=== PATIENT | male | born 1960 | race Asian ===

== ENCOUNTER 2019-01-12 16:46 | Inpatient (IN) | payer BC, MEDICAID ==
[~2019-01-12] VITALS: Ht 160 cm; Wt 73.9 kg
[2019-01-12 18:43] LABS: BASOPHILS % (AUTO) 0.9 % (0.0-2.0); EOSINOPHILS % (AUTO) 1.2 % (1.0-6.0); HEMATOCRIT 43.8 % (41-53); HEMOGLOBIN 14.8 g/dL (13.5-17.5); LYMPHOCYTES # (AUTO) 2.5 K/uL (1.0-4.8); LYMPHOCYTES % (AUTO) 23.3 % (22.0-44.0); MEAN CORPUSCULAR HGB CONC 33.8 G/dL (31.0-37.0); MEAN CORPUSCULAR VOLUME 83 fL (80-100); MONOCYTES % (AUTO) 9.4 % (2.0-9.0); NEUTROPHILS % (AUTO) 65.2 % (40.0-70.0); PLATELET COUNT (AUTO) 327 K/uL (150-450); RED BLOOD CELL COUNT(AUTO) 5.28 MIL/uL (4.50-5.90); RED CELL DISTRIBUTION WIDTH 13.7 % (11.5-14.5)
[2019-01-12 18:53] LABS: ANION GAP 13 mmol/L (8-16); CALCIUM, TOTAL 9.2 mg/dL (8.8-10.5); CARBON DIOXIDE 25 mmol/L (22-29); CHLORIDE 105 mmol/L (98-107); CREATININE 1.04 mg/dL (0.60-1.30); GLOMERULAR FILTR. RATE CALC > 60 mL/min (>60); GLUCOSE,RANDOM 100 mg/dL (70-110); POTASSIUM 3.6 mmol/L (3.5-5.1); SODIUM SERUM 143 mmol/L (136-145); UREA NITROGEN, BLOOD 9 mg/dL (7-18)
[2019-01-12 19:00] LABS: ALANINE AMINOTRANSFERASE 110 U/L (12-78); ALKALINE PHOSPHATASE 68 U/L (46-116); ASPARTATE AMINOTRANSFERASE 126 U/L (15-37); BILIRUBIN,TOTAL 0.8 mg/dL (0.1-1.0); TOTAL PROTEIN, SERUM 7.5 g/dL (6.4-8.2)
[2019-01-12] MEDS ORDERED: FLUD25I IM (19:34)
[2019-01-12] MEDS ORDERED: RISP0.252 PO (19:34)
[2019-01-12 20:05] LABS: AMPHET/METH SCREEN,URINE NEGATIVE (NEGATIVE); BARBITURATE SCREEN, URINE NEGATIVE (NEGATIVE); BENZODIAZEPINES SCREEN,URINE NEGATIVE (NEGATIVE); CANNABINOID SCREEN,URINE NEGATIVE (NEGATIVE); COCAINE SCREEN,URINE NEGATIVE (NEGATIVE); METHADONE SCREEN, URINE NEGATIVE (NEGATIVE); OPIATE SCREEN,URINE NEGATIVE (NEGATIVE)
[2019-01-12 20:07] LABS: PHENCYCLIDINE SCREEN,URINE NEGATIVE (NEGATIVE)
[2019-01-13 00:47] VITALS: BP 130/90
[2019-01-13 07:19] LABS: CHOL/HDL RATIO 4.9 (4.2-7.3)
[2019-01-13] MEDS ORDERED: MAGNESIUM HYDROXIDE SUSPENSION 30 ML UDCUP PO PRN (08:00)
[2019-01-13] MEDS ORDERED: ALBUTEROL SULFATE HFA 90 MCG/PUFF 8 GM INHALER IH PRN (08:00)
[2019-01-13] MEDS ORDERED: LOPERAMIDE HCL 2 MG CAPSULE PO PRN (08:00)
[2019-01-13] MEDS ORDERED: ACETAMINOPHEN 325 MG TABLET PO PRN (08:00)
[2019-01-13] MEDS ORDERED: CloNIDine HCL 0.1 MG TABLET PO PRN (08:00)
[2019-01-13] MEDS ORDERED: PETROLATUM,WHITE 28 GM JELLY TP PRN (08:00)
[2019-01-13] MEDS ORDERED: BACITRACIN 28.4 GM OINTMENT TP PRN (08:00)
[2019-01-13] MEDS ORDERED: IBUPROFEN 600 MG TABLET PO PRN (08:00)
[2019-01-13] MEDS ORDERED: ONDANSETRON HCL 4 MG TABLET PO PRN (08:00)
[2019-01-13] MEDS ORDERED: MAG HYDROX/AL HYDROX/SIMETH ES 30 ML SUSPENSION UDCUP PO PRN (08:00)
[2019-01-13] MEDS ORDERED: BENZOCAINE/MENTHOL LOZENGE MM PRN (08:00)
[2019-01-13 08:30] VITALS: BP 143/89
[2019-01-13] MEDS: DOCUSATE SODIUM 100 MG CAPSULE PO SCH (09:25)
[2019-01-13] MEDS: OMEPRAZOLE 20 MG CAPSULE PO SCH (09:26)
[2019-01-13] MEDS: RisperiDONE 1 MG TABLET PO SCH ×2 (13:46→20:52)
[2019-01-14 08:05] VITALS: BP 149/83
[2019-01-14] MEDS: OMEPRAZOLE 20 MG CAPSULE PO SCH (08:34)
[2019-01-14] MEDS: DOCUSATE SODIUM 100 MG CAPSULE PO SCH (08:34)
[2019-01-14] MEDS: RisperiDONE 1 MG TABLET PO SCH ×2 (08:34→20:08)
[2019-01-14 19:29] VITALS: BP 137/98
[2019-01-14] MEDS: SIMVASTATIN 10 MG TABLET PO SCH (21:33)
[2019-01-15] MEDS: LISINOPRIL 10 MG TABLET PO SCH (08:31)
[2019-01-15] MEDS: OMEGA-3/DHA/EPA/FISH OIL 1,000 MG CAPSULE PO SCH (08:31)
[2019-01-15] MEDS: RisperiDONE 1 MG TABLET PO SCH (08:31)
[2019-01-15] MEDS: OMEPRAZOLE 20 MG CAPSULE PO SCH (08:31)
[2019-01-15] MEDS: DOCUSATE SODIUM 100 MG CAPSULE PO SCH (08:31)
[2019-01-15 10:46] VITALS: BP 150/98
[2019-01-15] MEDS: LORazepam 2 MG TABLET PO PRN ×2 (11:31→17:02)
[2019-01-15] MEDS: HALOPERIDOL 5 MG TABLET PO PRN ×2 (11:31→17:02)
[2019-01-15 16:41] VITALS: BP 110/69
[2019-01-15] MEDS: RisperiDONE 2 MG TABLET PO SCH (20:55)
[2019-01-15] MEDS: SIMVASTATIN 10 MG TABLET PO SCH (20:55)
[2019-01-16] MEDS: ZOLPIDEM TARTRATE 10 MG TABLET PO PRN (00:32)
[2019-01-16 00:37] VITALS: BP 109/82
[2019-01-16 08:20] VITALS: BP 124/89
[2019-01-16] MEDS: OMEGA-3/DHA/EPA/FISH OIL 1,000 MG CAPSULE PO SCH (08:25)
[2019-01-16] MEDS: HALOPERIDOL 5 MG TABLET PO PRN ×2 (08:25→13:37)
[2019-01-16] MEDS: OMEPRAZOLE 20 MG CAPSULE PO SCH (08:25)
[2019-01-16] MEDS: LISINOPRIL 10 MG TABLET PO SCH (08:25)
[2019-01-16] MEDS: RisperiDONE 2 MG TABLET PO SCH ×2 (08:25→20:26)
[2019-01-16] MEDS: LORazepam 2 MG TABLET PO PRN ×2 (08:25→13:37)
[2019-01-16] MEDS: DOCUSATE SODIUM 100 MG CAPSULE PO SCH (08:25)
[2019-01-16 17:33] VITALS: BP 131/64
[2019-01-16] MEDS: SIMVASTATIN 10 MG TABLET PO SCH (20:26)
[2019-01-17 08:10] VITALS: BP 135/94
[2019-01-17] MEDS: RisperiDONE 2 MG TABLET PO SCH ×2 (08:22→20:12)
[2019-01-17] MEDS: HALOPERIDOL 5 MG TABLET PO PRN ×2 (08:22→18:02)
[2019-01-17] MEDS: LISINOPRIL 10 MG TABLET PO SCH (08:22)
[2019-01-17] MEDS: OMEGA-3/DHA/EPA/FISH OIL 1,000 MG CAPSULE PO SCH (08:22)
[2019-01-17] MEDS: DOCUSATE SODIUM 100 MG CAPSULE PO SCH (08:22)
[2019-01-17] MEDS: LORazepam 2 MG TABLET PO PRN ×2 (08:22→18:02)
[2019-01-17] MEDS: OMEPRAZOLE 20 MG CAPSULE PO SCH (08:22)
[2019-01-17 18:00] VITALS: BP 131/86
[2019-01-17] MEDS: ZOLPIDEM TARTRATE 10 MG TABLET PO PRN (20:12)
[2019-01-17] MEDS: SIMVASTATIN 10 MG TABLET PO SCH (21:00)
[2019-01-18 09:00] VITALS: BP 129/86
[2019-01-18] MEDS: OMEGA-3/DHA/EPA/FISH OIL 1,000 MG CAPSULE PO SCH (11:07)
[2019-01-18] MEDS: LISINOPRIL 10 MG TABLET PO SCH (11:07)
[2019-01-18] MEDS: RisperiDONE 2 MG TABLET PO SCH ×2 (11:07→20:39)
[2019-01-18] MEDS: LORazepam 2 MG TABLET PO PRN ×2 (11:07→16:00)
[2019-01-18] MEDS: OMEPRAZOLE 20 MG CAPSULE PO SCH (11:07)
[2019-01-18] MEDS: HALOPERIDOL 5 MG TABLET PO PRN ×2 (11:07→16:00)
[2019-01-18] MEDS: DOCUSATE SODIUM 100 MG CAPSULE PO SCH (11:10)
[2019-01-18 17:53] VITALS: BP 114/79
[2019-01-18] MEDS: SIMVASTATIN 10 MG TABLET PO SCH (20:39)
[2019-01-19 06:03] VITALS: BP 134/82
[2019-01-19 08:00] VITALS: BP 148/80
[2019-01-19] MEDS: LISINOPRIL 10 MG TABLET PO SCH (08:31)
[2019-01-19] MEDS: HALOPERIDOL 5 MG TABLET PO PRN ×2 (08:31→16:18)
[2019-01-19] MEDS: LORazepam 2 MG TABLET PO PRN ×2 (08:31→16:18)
[2019-01-19] MEDS: DOCUSATE SODIUM 100 MG CAPSULE PO SCH (08:31)
[2019-01-19] MEDS: OMEPRAZOLE 20 MG CAPSULE PO SCH (08:31)
[2019-01-19] MEDS: OMEGA-3/DHA/EPA/FISH OIL 1,000 MG CAPSULE PO SCH (08:31)
[2019-01-19] MEDS: RisperiDONE 2 MG TABLET PO SCH ×2 (08:32→20:33)
[2019-01-19 16:32] VITALS: BP 105/65
[2019-01-19] MEDS: SIMVASTATIN 10 MG TABLET PO SCH (20:33)
[2019-01-20] MEDS: DOCUSATE SODIUM 100 MG CAPSULE PO SCH (09:13)
[2019-01-20] MEDS: LISINOPRIL 10 MG TABLET PO SCH (09:14)
[2019-01-20] MEDS: HALOPERIDOL 5 MG TABLET PO PRN (09:14)
[2019-01-20] MEDS: RisperiDONE 2 MG TABLET PO SCH ×2 (09:14→20:14)
[2019-01-20] MEDS: LORazepam 2 MG TABLET PO PRN (09:14)
[2019-01-20] MEDS: OMEGA-3/DHA/EPA/FISH OIL 1,000 MG CAPSULE PO SCH (09:14)
[2019-01-20] MEDS: OMEPRAZOLE 20 MG CAPSULE PO SCH (09:14)
[2019-01-20 12:47] VITALS: BP 118/69
[2019-01-20 16:38] VITALS: BP 110/74
[2019-01-20] MEDS: SIMVASTATIN 10 MG TABLET PO SCH (20:13)
[2019-01-21 00:15] VITALS: BP 139/86
[2019-01-21 09:00] VITALS: BP 111/66
[2019-01-21] MEDS: OMEPRAZOLE 20 MG CAPSULE PO SCH (09:11)
[2019-01-21] MEDS: RisperiDONE 2 MG TABLET PO SCH ×2 (09:11→20:11)
[2019-01-21] MEDS: LISINOPRIL 10 MG TABLET PO SCH (09:11)
[2019-01-21] MEDS: DOCUSATE SODIUM 100 MG CAPSULE PO SCH (09:11)
[2019-01-21] MEDS: OMEGA-3/DHA/EPA/FISH OIL 1,000 MG CAPSULE PO SCH (09:11)
[2019-01-21] MEDS: LORazepam 2 MG TABLET PO PRN ×2 (11:07→19:06)
[2019-01-21] MEDS: HALOPERIDOL 5 MG TABLET PO PRN ×2 (11:07→19:06)
[2019-01-21 16:38] VITALS: BP 118/66
[2019-01-21] MEDS: SIMVASTATIN 10 MG TABLET PO SCH (20:11)
[2019-01-21] MEDS: ZOLPIDEM TARTRATE 10 MG TABLET PO PRN (21:59)
[2019-01-22] MEDS: OMEGA-3/DHA/EPA/FISH OIL 1,000 MG CAPSULE PO SCH (08:05)
[2019-01-22] MEDS: HALOPERIDOL 5 MG TABLET PO PRN (08:05)
[2019-01-22] MEDS: LORazepam 2 MG TABLET PO PRN (08:05)
[2019-01-22] MEDS: RisperiDONE 2 MG TABLET PO SCH ×2 (08:06→20:10)
[2019-01-22] MEDS: LISINOPRIL 10 MG TABLET PO SCH (08:06)
[2019-01-22] MEDS: DOCUSATE SODIUM 100 MG CAPSULE PO SCH (08:06)
[2019-01-22] MEDS: OMEPRAZOLE 20 MG CAPSULE PO SCH (08:06)
[2019-01-22] MEDS: DIVALPROEX SODIUM 500 MG DR TABLET PO SCH ×2 (12:05→20:10)
[2019-01-22 13:12] VITALS: BP 123/96
[2019-01-22 18:00] VITALS: BP 127/83
[2019-01-22] MEDS: SIMVASTATIN 10 MG TABLET PO SCH (20:10)
[2019-01-23] MEDS: DIVALPROEX SODIUM 500 MG DR TABLET PO SCH ×2 (08:00→20:08)
[2019-01-23] MEDS: LISINOPRIL 10 MG TABLET PO SCH (08:00)
[2019-01-23] MEDS: RisperiDONE 2 MG TABLET PO SCH ×2 (08:00→20:08)
[2019-01-23] MEDS: OMEPRAZOLE 20 MG CAPSULE PO SCH (08:00)
[2019-01-23] MEDS: LORazepam 2 MG TABLET PO PRN (08:00)
[2019-01-23] MEDS: DOCUSATE SODIUM 100 MG CAPSULE PO SCH (08:00)
[2019-01-23] MEDS: OMEGA-3/DHA/EPA/FISH OIL 1,000 MG CAPSULE PO SCH (08:03)
[2019-01-23 08:09] VITALS: BP 141/95
[2019-01-23 16:29] VITALS: BP 102/60
[2019-01-23] MEDS: SIMVASTATIN 10 MG TABLET PO SCH (20:08)
[2019-01-24] MEDS: LISINOPRIL 10 MG TABLET PO SCH (08:04)
[2019-01-24] MEDS: OMEGA-3/DHA/EPA/FISH OIL 1,000 MG CAPSULE PO SCH (08:04)
[2019-01-24] MEDS: LORazepam 2 MG TABLET PO PRN (08:05)
[2019-01-24] MEDS: HALOPERIDOL 5 MG TABLET PO PRN (08:05)
[2019-01-24] MEDS: DOCUSATE SODIUM 100 MG CAPSULE PO SCH (08:05)
[2019-01-24] MEDS: DIVALPROEX SODIUM 500 MG DR TABLET PO SCH ×2 (08:05→20:08)
[2019-01-24] MEDS: OMEPRAZOLE 20 MG CAPSULE PO SCH (08:05)
[2019-01-24] MEDS: RisperiDONE 2 MG TABLET PO SCH ×2 (08:05→20:08)
[2019-01-24 08:34] VITALS: BP 133/80
[2019-01-24 16:30] VITALS: BP 104/68
[2019-01-24] MEDS: SIMVASTATIN 10 MG TABLET PO SCH (20:08)
[2019-01-24] MEDS: ZOLPIDEM TARTRATE 10 MG TABLET PO PRN (20:17)
[2019-01-25 08:00] VITALS: BP 135/96
[2019-01-25] MEDS: OMEPRAZOLE 20 MG CAPSULE PO SCH (08:44)
[2019-01-25] MEDS: DOCUSATE SODIUM 100 MG CAPSULE PO SCH (08:44)
[2019-01-25] MEDS: RisperiDONE 2 MG TABLET PO SCH ×2 (08:44→20:39)
[2019-01-25] MEDS: DIVALPROEX SODIUM 500 MG DR TABLET PO SCH ×2 (08:45→20:40)
[2019-01-25] MEDS: LISINOPRIL 10 MG TABLET PO SCH (08:45)
[2019-01-25] MEDS: OMEGA-3/DHA/EPA/FISH OIL 1,000 MG CAPSULE PO SCH (08:45)
[2019-01-25 16:22] VITALS: BP 131/89
[2019-01-25] MEDS: SIMVASTATIN 10 MG TABLET PO SCH (20:39)
[2019-01-26 00:35] VITALS: BP 142/98
[2019-01-26] MEDS: OMEPRAZOLE 20 MG CAPSULE PO SCH (08:31)
[2019-01-26] MEDS: LISINOPRIL 10 MG TABLET PO SCH (08:31)
[2019-01-26] MEDS: OMEGA-3/DHA/EPA/FISH OIL 1,000 MG CAPSULE PO SCH (08:31)
[2019-01-26] MEDS: DOCUSATE SODIUM 100 MG CAPSULE PO SCH (08:31)
[2019-01-26] MEDS: RisperiDONE 2 MG TABLET PO SCH ×2 (08:31→20:44)
[2019-01-26] MEDS: DIVALPROEX SODIUM 500 MG DR TABLET PO SCH ×2 (08:32→20:44)
[2019-01-26 10:55] VITALS: BP 145/86
[2019-01-26 16:02] VITALS: BP 131/92
[2019-01-26] MEDS: LORazepam 2 MG TABLET PO PRN (16:18)
[2019-01-26 19:50] VITALS: BP 136/79
[2019-01-26] MEDS: SIMVASTATIN 10 MG TABLET PO SCH (20:44)
[2019-01-27] MEDS: OMEGA-3/DHA/EPA/FISH OIL 1,000 MG CAPSULE PO SCH (08:30)
[2019-01-27] MEDS: LORazepam 2 MG TABLET PO PRN (08:30)
[2019-01-27] MEDS: DIVALPROEX SODIUM 500 MG DR TABLET PO SCH ×2 (08:30→21:18)
[2019-01-27] MEDS: OMEPRAZOLE 20 MG CAPSULE PO SCH (08:30)
[2019-01-27] MEDS: DOCUSATE SODIUM 100 MG CAPSULE PO SCH (08:30)
[2019-01-27] MEDS: LISINOPRIL 10 MG TABLET PO SCH (08:31)
[2019-01-27] MEDS: RisperiDONE 2 MG TABLET PO SCH ×2 (08:31→21:18)
[2019-01-27 09:14] VITALS: BP 163/77
[2019-01-27] MEDS ORDERED: PALIPERIDONE PALMITATE 234 MG/1.5 ML SYRINGE IM ONE (10:00)
[2019-01-27 20:10] VITALS: BP 107/72
[2019-01-27] MEDS: SIMVASTATIN 10 MG TABLET PO SCH (21:18)
[2019-01-27] MEDS: ZOLPIDEM TARTRATE 10 MG TABLET PO PRN (21:18)
[2019-01-28] MEDS: DIVALPROEX SODIUM 500 MG DR TABLET PO SCH ×2 (08:30→20:35)
[2019-01-28] MEDS: DOCUSATE SODIUM 100 MG CAPSULE PO SCH (08:30)
[2019-01-28] MEDS: RisperiDONE 2 MG TABLET PO SCH ×2 (08:31→20:35)
[2019-01-28] MEDS: LISINOPRIL 20 MG TABLET PO SCH (08:31)
[2019-01-28] MEDS: OMEPRAZOLE 20 MG CAPSULE PO SCH (08:31)
[2019-01-28] MEDS: OMEGA-3/DHA/EPA/FISH OIL 1,000 MG CAPSULE PO SCH (08:32)
[2019-01-28] MEDS: LORazepam 2 MG TABLET PO PRN (08:35)
[2019-01-28 10:11] VITALS: BP 110/75
[2019-01-28 19:17] VITALS: BP 109/68
[2019-01-28] MEDS: SIMVASTATIN 10 MG TABLET PO SCH (20:35)
[2019-01-29 04:54] VITALS: BP 109/74
[2019-01-29 08:00] VITALS: BP 134/80
[2019-01-29] MEDS: LISINOPRIL 20 MG TABLET PO SCH (08:06)
[2019-01-29] MEDS: DIVALPROEX SODIUM 500 MG DR TABLET PO SCH ×2 (08:06→20:21)
[2019-01-29] MEDS: DOCUSATE SODIUM 100 MG CAPSULE PO SCH (08:06)
[2019-01-29] MEDS: OMEPRAZOLE 20 MG CAPSULE PO SCH (08:06)
[2019-01-29] MEDS: OMEGA-3/DHA/EPA/FISH OIL 1,000 MG CAPSULE PO SCH (08:07)
[2019-01-29] MEDS: RisperiDONE 2 MG TABLET PO SCH ×2 (08:07→20:21)
[2019-01-29] MEDS: SIMVASTATIN 10 MG TABLET PO SCH (20:22)
[2019-01-29 20:55] VITALS: BP 131/82
[2019-01-30 08:00] VITALS: BP 127/76
[2019-01-30] MEDS: RisperiDONE 2 MG TABLET PO SCH ×2 (08:55→20:22)
[2019-01-30] MEDS: OMEPRAZOLE 20 MG CAPSULE PO SCH (08:56)
[2019-01-30] MEDS: DOCUSATE SODIUM 100 MG CAPSULE PO SCH (08:56)
[2019-01-30] MEDS: OMEGA-3/DHA/EPA/FISH OIL 1,000 MG CAPSULE PO SCH (08:56)
[2019-01-30] MEDS: LISINOPRIL 20 MG TABLET PO SCH (08:56)
[2019-01-30] MEDS: DIVALPROEX SODIUM 500 MG DR TABLET PO SCH ×2 (08:56→20:22)
[2019-01-30 17:00] VITALS: BP 122/76
[2019-01-30] MEDS: SIMVASTATIN 10 MG TABLET PO SCH (20:22)
[2019-01-31 05:42] VITALS: BP 120/81
[2019-01-31] MEDS ORDERED: PALIPERIDONE PALMITATE 156 MG/ML SYRINGE IM ONE (09:00)
[2019-01-31] MEDS: OMEGA-3/DHA/EPA/FISH OIL 1,000 MG CAPSULE PO SCH (09:15)
[2019-01-31] MEDS: DOCUSATE SODIUM 100 MG CAPSULE PO SCH (09:15)
[2019-01-31] MEDS: OMEPRAZOLE 20 MG CAPSULE PO SCH (09:15)
[2019-01-31] MEDS: LISINOPRIL 20 MG TABLET PO SCH (09:15)
[2019-01-31] MEDS: RisperiDONE 2 MG TABLET PO SCH ×2 (09:15→20:41)
[2019-01-31] MEDS: DIVALPROEX SODIUM 500 MG DR TABLET PO SCH ×2 (09:16→20:41)
[2019-01-31 17:02] VITALS: BP 106/70
[2019-01-31] MEDS: SIMVASTATIN 10 MG TABLET PO SCH (20:41)
[2019-02-01] MEDS: OMEPRAZOLE 20 MG CAPSULE PO SCH (08:17)
[2019-02-01] MEDS: RisperiDONE 2 MG TABLET PO SCH ×2 (08:17→20:19)
[2019-02-01] MEDS: OMEGA-3/DHA/EPA/FISH OIL 1,000 MG CAPSULE PO SCH (08:17)
[2019-02-01] MEDS: DIVALPROEX SODIUM 500 MG DR TABLET PO SCH ×2 (08:17→20:19)
[2019-02-01] MEDS: DOCUSATE SODIUM 100 MG CAPSULE PO SCH (08:18)
[2019-02-01] MEDS: LISINOPRIL 20 MG TABLET PO SCH (08:20)
[2019-02-01 08:47] VITALS: BP 128/90
[2019-02-01 16:31] VITALS: BP 108/68
[2019-02-01] MEDS: SIMVASTATIN 10 MG TABLET PO SCH (20:19)
[2019-02-02 09:07] VITALS: BP 131/87
[2019-02-02] MEDS: RisperiDONE 2 MG TABLET PO SCH ×2 (09:28→20:31)
[2019-02-02] MEDS: DIVALPROEX SODIUM 500 MG DR TABLET PO SCH ×2 (09:28→20:31)
[2019-02-02] MEDS: LISINOPRIL 20 MG TABLET PO SCH (09:28)
[2019-02-02] MEDS: DOCUSATE SODIUM 100 MG CAPSULE PO SCH (09:28)
[2019-02-02] MEDS: OMEGA-3/DHA/EPA/FISH OIL 1,000 MG CAPSULE PO SCH (09:28)
[2019-02-02] MEDS: OMEPRAZOLE 20 MG CAPSULE PO SCH (09:29)
[2019-02-02 16:36] VITALS: BP 116/67
[2019-02-02] MEDS: ZOLPIDEM TARTRATE 10 MG TABLET PO PRN (20:30)
[2019-02-02] MEDS: SIMVASTATIN 10 MG TABLET PO SCH (20:31)
[2019-02-03] MEDS: OMEPRAZOLE 20 MG CAPSULE PO SCH (08:09)
[2019-02-03] MEDS: DOCUSATE SODIUM 100 MG CAPSULE PO SCH (08:09)
[2019-02-03] MEDS: LISINOPRIL 20 MG TABLET PO SCH (08:09)
[2019-02-03] MEDS: OMEGA-3/DHA/EPA/FISH OIL 1,000 MG CAPSULE PO SCH (08:09)
[2019-02-03] MEDS: RisperiDONE 2 MG TABLET PO SCH ×2 (08:09→20:16)
[2019-02-03] MEDS: DIVALPROEX SODIUM 500 MG DR TABLET PO SCH ×2 (08:09→20:16)
[2019-02-03] MEDS: HALOPERIDOL 5 MG TABLET PO PRN (08:12)
[2019-02-03] MEDS: LORazepam 2 MG TABLET PO PRN (08:12)
[2019-02-03 09:37] VITALS: BP 128/80
[2019-02-03 16:00] VITALS: BP 120/80
[2019-02-03] MEDS: ZOLPIDEM TARTRATE 10 MG TABLET PO PRN (20:15)
[2019-02-03] MEDS: SIMVASTATIN 10 MG TABLET PO SCH (20:15)
[2019-02-04 03:55] VITALS: BP 124/78
[2019-02-04] MEDS: LORazepam 2 MG TABLET PO PRN (08:52)
[2019-02-04] MEDS: HALOPERIDOL 5 MG TABLET PO PRN (08:52)
[2019-02-04] MEDS: DIVALPROEX SODIUM 500 MG DR TABLET PO SCH (08:53)
[2019-02-04] MEDS: OMEGA-3/DHA/EPA/FISH OIL 1,000 MG CAPSULE PO SCH (08:53)
[2019-02-04] MEDS: RisperiDONE 2 MG TABLET PO SCH (08:53)
[2019-02-04] MEDS: LISINOPRIL 20 MG TABLET PO SCH (08:53)
[2019-02-04] MEDS: OMEPRAZOLE 20 MG CAPSULE PO SCH (08:53)
[2019-02-04] MEDS: DOCUSATE SODIUM 100 MG CAPSULE PO SCH (08:53)
[2019-02-04 09:18] VITALS: BP 122/76
[2019-02-04] MEDS ORDERED: DIVA-78 PO (10:56)
[2019-02-04] MEDS ORDERED: RISP2 PO (10:56)
[2019-02-04] MEDS ORDERED: PALI234D IM (10:56)
[2019-02-04] MEDS ORDERED: DSS100 PO (11:33)
[2019-02-04] MEDS ORDERED: LISI-662 PO (11:33)
[2019-02-04] MEDS ORDERED: OMEG-135 PO (11:35)
[2019-02-04] MEDS ORDERED: OMEP20 PO (11:35)
[2019-02-04] MEDS ORDERED: SIMV-259 PO (11:36)
[2019-02-28] MEDS ORDERED: PALIPERIDONE PALMITATE 234 MG/1.5 ML SYRINGE IM SCH (09:00)
== END 2019-02-04 15:15 | disposition home or self-care (01) | DRG 885 ==
LOC: EMS 16:47 → 3EI 23:40 → 3EC 01-21 23:36
DX: F20.0 Paranoid schizophrenia (principal); E78.00 Pure hypercholesterolemia, unspecified; E78.1 Pure hyperglyceridemia; F17.200 Nicotine dependence, unspecified, uncomplicated; G47.00 Insomnia, unspecified; F12.90 Cannabis use, unspecified, uncomplicated; K59.00 Constipation, unspecified; R45.850 Homicidal ideations; Z59.0 Homelessness; Z79.899 Other long term (current) drug therapy
CPT/HCPCS: 80074; 87081; 93005; G0480